=== PATIENT | female | born 1980 ===

== ENCOUNTER 2017-10-25 13:16 | Emergency (ER) | payer OTHER ==
[2017-10-25 13:43] VITALS: BP 125/87; RESP 18
--- NOTE | 2017-10-25 16:21 | C.PDOC ---
History Of Present Illness 37 y/o female presents to ED with complaints of sore throat, sneezing, yellow sputum cough and intermittent fever of 100 for 3 days. Patient reports body aches and states mother was positive for flu. Patient states she took Teraflu and Tylenol for fever with no improvement. Patient had loose stool 1 day ago but resolved and denies any other complaints at this time. Time Seen by Provider: 10/25/17 15:38 Chief Complaint (Nursing): Flu-like Symptoms History Per: Patient History/Exam Limitations: no limitations Onset/Duration Of Symptoms: Days Current Symptoms Are (Timing): Still Present Associated Symptoms: Fever, Sore Throat, Cough Past Medical History Reviewed: Historical Data, Nursing Documentation, Vital Signs Vital Signs: Last Vital Signs Temp 98.7 F 10/25/17 13:41 Pulse 113 H 10/25/17 14:12 Resp 18 10/25/17 14:12 BP 125/87 10/25/17 13:41 Pulse Ox 97 10/25/17 16:22 - Medical History PMH: No Chronic Diseases Surgical History: No Surg Hx Family History: States: No Known Family Hx - Social History Hx Alcohol Use: Yes Hx Substance Use: No - Immunization History Hx Tetanus Toxoid Vaccination: No Hx Influenza Vaccination: No Hx Pneumococcal Vaccination: No Review Of Systems Except As Marked, All Systems Reviewed And Found Negative. Constitutional: Positive for: Fever ENT: Positive for: Throat Pain Respiratory: Positive for: Cough Physical Exam - Physical Exam Appears: Non-toxic, No Acute Distress Skin: Warm, Dry, No Rash Head: Atraumatic, Normacephalic Eye(s): bilateral: Normal Inspection Ear(s): Bilateral: Normal Oral Mucosa: Moist Throat: Erythema, No Exudate, No Drooling Neck: Normal ROM, Supple Cardiovascular: Rhythm Regular Respiratory: Normal Breath Sounds, No Rales, No Rhonchi, No Wheezing Gastrointestinal/Abdominal: Soft, No Tenderness, No Guarding, No Rebound Neurological/Psych: Oriented x3, Normal Speech ED Course And Treatment O2 Sat by Pulse Oximetry: 97 (RA) Pulse Ox Interpretation: Normal Medical Decision Making Medical Decision Making: Assessment: Flu like syndrome Repeat pulse 94 BPM, Disposition Counseled Patient/Family Regarding: Studies Performed, Diagnosis, Need For Followup, Rx Given - Disposition Referrals: Mayra Dozier MD [Staff Provider] - Disposition: HOME/ ROUTINE Disposition Time: 16:20 Condition: STABLE Additional Instructions: follow up with your doctor in 2 days call to make an appointment take medications as prescribed return to ED if symptoms worsens or progress Prescriptions: Naproxen [Naprosyn] 500 mg PO BID PRN #16 tab PRN Reason: Pain, Moderate (4-7) Oseltamivir Phosphate [Tamiflu] 75 mg PO BID #10 capsule Instructions: Flu Forms: [facility] (Lithuanian), General Discharge Instructions - Clinical Impression Clinical Impression: Influenza-like illness - Scribe Statement The provider has reviewed the documentation as recorded by the Scribe Eric Reed All medical record entries made by the Zain were at my direction and personally dictated by me. I have reviewed the chart and agree that the record accurately reflects my personal performance of the history, physical exam, medical decision making, and the department course for this patient. I have also personally directed, reviewed, and agree with the discharge instructions and disposition.
[2017-10-25 16:46] VITALS: PULSE 103; TEMP 98.9; O2SAT 98
== END 2017-10-25 16:46 | disposition home or self-care (01) ==
LOC: C.ER 13:16
DX: J11.1 Influenza due to unidentified influenza virus with other respiratory manifestations (principal)